=== PATIENT | male | born 1980 | race Caucasian/White ===

== ENCOUNTER 2018-02-11 11:34 | Emergency (ER) | payer MEDICAID ==
[2018-02-11] MEDS: LIDOCAINE 1% (MDV) 10 ML INJ INJ (12:47)
[2018-02-11] MEDS: HYDROCODONE/APAP (5/325) TAB PO (12:50)
[2018-02-11] MEDS: DIPHTH/TET/ACEL PERTUSS (ADULT) 0.5 ML VIAL IM (12:50)
== END 2018-02-11 15:00 | disposition home or self-care (01) ==
LOC: FTE 11:34
DX: S81.011A Laceration without foreign body, right knee, initial encounter (principal); W29.3XXA Contact with powered garden and outdoor hand tools and machinery, initial encounter; Y92.007 Garden or yard of unspecified non-institutional (private) residence as the place of occurrence of the external cause; Z23 Encounter for immunization
CPT/HCPCS: 12032; 73562; 90471; 90715; 99284-25

== ENCOUNTER 2018-02-13 06:53 | Emergency (ER) | payer MEDICAID | END 2018-02-13 07:32 | disposition home or self-care (01) | LOC: FTE 06:53 | DX: Z48.01 Encounter for change or removal of surgical wound dressing (principal) | CPT/HCPCS: 99281; Z7502 ==

== ENCOUNTER 2018-02-21 07:36 | Emergency (ER) | payer MEDICAID | END 2018-02-21 08:39 | disposition home or self-care (01) | LOC: FTE 07:36 | DX: Z48.02 Encounter for removal of sutures (principal) | CPT/HCPCS: 99281; Z7502 ==